=== PATIENT | male | born 1970 | race Caucasian/White ===

== ENCOUNTER 2017-03-09 12:52 | Emergency (ER) | payer SELFPAY ==
[2017-03-09 13:12] VITALS: BP 144/98
[2017-03-09] MEDS ORDERED: Bacitracin Oint 1 GM U/D Packet TOP ONE (14:03)
[2017-03-09] MEDS ORDERED: Diphtheria,Pertussis(Acell),Tetanus Vaccine 0.5 ML SDV IM ONE (14:04)
--- NOTE | 2017-03-09 14:06 | EDM.PDOC ---
[id number] 4d LEFT INDEX FINGER CUT Time Seen by Provider: 03/09/17 14:04 Source of Information: Reports: Patient History Limitations: Reports: No Limitations - History of Present Illness INITIAL COMMENTS - FREE TEXT/NARRATIVE: pt has a laceration on the dorsum of the left index finger. Onset: Today Duration: Hour(s): Location: Reports: Upper Extremity, Left Associated Symptoms: Reports: No Other Symptoms Left Hand Pain Score (Numeric/FACES): 3 - Related Data Allergies Allergy/AdvReac Type Severity Reaction Status Date / Time Penicillins Allergy Hives Verified 03/09/17 13:25 Home Meds: Home Meds NK [No Known Home Meds] 12/06/16 [History] Past Medical History Psychiatric History: Reports: Anxiety, Panic Attack Social & Family History - Tobacco Use Smoking Status *Q: Current Every Day Smoker Years of Tobacco use: 30 Packs/Tins Daily: 0.5 - Recreational Drug Use Recreational Drug Use: No ED ROS GENERAL - Review of Systems Review Of Systems: See Below Constitutional: Reports: No Symptoms HEENT: Reports: No Symptoms Respiratory: Reports: No Symptoms Cardiovascular: Reports: No Symptoms Endocrine: Reports: No Symptoms GI/Abdominal: Reports: No Symptoms : Reports: No Symptoms Musculoskeletal: Reports: Other ( laceration of left index finger. ) ED EXAM, SKIN/RASH Exam: See Below Text/Narrative:: pt arrived with a flap type laceration 1 inch in length. There was normal motion and sensation of the finger Exam Limited By: No Limitations General Appearance: Alert Extremities: Other (pt arrived with a 1 inch flap type laceration on the left index finger dorsal aspect. He had normal sensation and normal movement. ) Neurological: Alert, Oriented, Normal Cognition Psychiatric: Normal Affect Course - Vital Signs Last Recorded V/S: Last Vital Signs Temp 36.6 C 03/09/17 13:16 Pulse 86 03/09/17 13:16 Resp 15 03/09/17 13:16 BP 144/98 H 03/09/17 13:16 Pulse Ox 97 03/09/17 13:16 - Orders/Labs/Meds Meds: Medications Discontinued Medications Generic Name Dose Route Start Last Admin Trade Name Freq PRN Reason Stop Dose Admin Bacitracin 1 dose 03/09/17 14:03 03/09/17 14:17 Bacitracin Oint 1 Gm TOP 03/09/17 14:04 1 dose ONETIME ONE Administration Diphtheria/Tetanus/Acell Pertussis 0.5 ml 03/09/17 14:04 03/09/17 14:18 Adacel IM 03/09/17 14:05 0.5 ml .ONCE ONE Administration Lidocaine HCl 5 ml 03/09/17 14:03 03/09/17 14:17 Xylocaine-Mpf 1% INJECT 03/09/17 14:04 5 ml ONETIME ONE Administration - Re-Assessments/Exams Free Text/Narrative Re-Assessment/Exam: 03/09/17 14:06 area was cleansed well and infiltrated with lidocaine 1 %. . the wound was then closed with 5- chromic and 5-0 prolene. Pt had normal sensation and normal motion. This was dressed with bacatracin. sr in 7-8days. 03/09/17 14:36 Departure - Departure Time of Disposition: 14:50 Disposition: Home, Self-Care 01 Condition: good Clinical Impression: Laceration - Discharge Information Instructions: VIS, Diphtheria, Tetanus, and Pertussis (DTaP) - CDC, Laceration Care, Adult, [id number] Referrals: PCP,None [Primary Care Provider] - Forms: ED Department Discharge Care Plan Goals: keep dry sr in 7-8 days rtc if problems.
== END 2017-03-09 14:51 | disposition home or self-care (01) ==
LOC: JP.ED 12:52
DX: S61.211A Laceration without foreign body of left index finger without damage to nail, initial encounter (principal); Z88.0 Allergy status to penicillin; F17.210 Nicotine dependence, cigarettes, uncomplicated; X58.XXXA Exposure to other specified factors, initial encounter
CPT/HCPCS: 12001; 12002; 90715; 99283-25

== ENCOUNTER 2025-04-17 10:13 | Emergency (ER) | payer OTHER ==
[2025-04-17 13:43] VITALS: BP 139/91; PULSE 78
[2025-04-17] MEDS: Bacitracin Oint 1 GM U/D Packet TOP ONE (14:08)
[2025-04-17] MEDS: Diphtheria,Pertussis(Acell),Tetanus Vaccine 0.5 ML Syringe IM ONE (14:09)
== END 2025-04-17 15:52 | disposition home or self-care (01) ==
LOC: JP.ED 10:13
DX: S61.451A Open bite of right hand, initial encounter (principal); F17.200 Nicotine dependence, unspecified, uncomplicated; Z86.16 Personal history of COVID-19; Z88.0 Allergy status to penicillin; W54.0XXA Bitten by dog, initial encounter; Z23 Encounter for immunization
CPT/HCPCS: 73130-26-RT; 73130-RT; 90471; 90715; 99283; 99283-25